=== PATIENT | female | born 1955 | race Caucasian/White ===

== ENCOUNTER → 2024-05-17 14:17 | Outpatient (REF) | payer MEDICARE, OTHER, SELFPAY | LOC: WDC 14:17 | PROVIDERS: ATTENDING PHYSICIAN Family Medicine | DX: Z12.31 Encounter for screening mammogram for malignant neoplasm of breast (principal); M81.0 Age-related osteoporosis without current pathological fracture | CPT/HCPCS: 77063; 77067; 77080 ==

== ENCOUNTER 2024-06-12 21:06 | Observation (INO) | payer MEDICARE, OTHER, SELFPAY ==
[2024-06-12 17:37] VITALS: BP 141/73
[2024-06-12 18:00] LABS: % Basophils 0.6 % (0-2); % Eosinophils 3.6 % (0-6); % Immature Granulocytes 0.2 % (0-0.5); % Monocytes 7.7 % (1.7-9.3); % Neutrophils 50.9 % (42.2-75.2); Absolute Basophils 0.1 10^3/uL (0-0.2); Absolute Eosinophils 0.3 10^3/uL (0-0.7); Absolute Lymphocytes 3.2 10^3/uL (1.2-3.4); Absolute Monocytes 0.7 10^3/uL (0.1-0.6); Absolute Neutrophils 4.4 10^3/uL (1.4-6.5); Hematocrit 39.5 % (37.0-47.0); Hemoglobin 13.4 g/dL (12.0-16.0); Mean Corp Hgb Conc. 33.9 g/dL (33.0-37.0); Mean Corpuscular Hgb 31.4 pg (27.0-31.0); Mean Corpuscular Volume 92.5 fL (81.0-99.0); Mean Platelet Volume 9.6 fL (7.4-10.4); Nucleated Red Blood Cells % 0 %; Platelet Count 325 10^3/uL (130-400); Red Blood Cell Count 4.27 10^6/uL (4.20-5.40); Red Cell Dist. Width 13.1 % (11.5-14.5); White Blood Cell Count 8.6 10^3/uL (4.8-10.8)
[2024-06-12 18:11] LABS: ALT (SGPT) 25 U/L (0-35); AST (SGOT) 31 U/L (14-36); Albumin 4.5 g/dl (3.5-5.0); Alkaline Phosphatase 106 U/L (38-126); Blood Urea Nitrogen 32 mg/dl (7-17); Calcium 10.4 mg/dl (8.4-10.2); Carbon Dioxide 32 mmol/L (22-30); Chloride 102 mmol/L (98-107); Glucose 91 mg/dl (70-99); Potassium 4.1 mmol/L (3.5-5.1); Sodium 142 mmol/L (135-145); Total Bilirubin 0.3 mg/dl (0.2-1.3); Total Protein 7.1 g/dl (6.3-8.2); eGFR > 60.00
[2024-06-12 18:45] LABS: TSH Reflex To Free T4 2.91 uIU/ml (0.47-4.68)
[2024-06-12 19:25] VITALS: BP 128/68
--- NOTE | 2024-06-12 20:00 | ED.GENMED ---
History of Present Illness
General
Chief Complaint: Visual Problem
Source: patient
Exam Limitations: none
Time Seen by Provider: 06/12/24 19:48
Nursing documentation reviewed up to this point in time: agreed with
History of Present Illness
History of Present Illness:
68-year-old female presents emergency ferment due to double vision the past 2 to 3 weeks. She was seen by Dr. 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
Past History
Past History
ED Past Medical History: None
ED Past Surgical History: Other (lasik)
Social History
Tobacco: Non-smoker
Alcohol: Occasional
Drug: None
Personal:
Living: with family
Review of Systems
Review of Systems
Allergies reviewed?: Yes
All Other Systems: Not applicable
Constitutional: Reports no symptoms
EENT: Reports no symptoms
Respiratory: Reports no symptoms
Cardiac: Reports no symptoms
ABD/GI: Reports no symptoms
: Reports no symptoms
Musculoskeletal: Reports no symptoms
Skin: Reports no symptoms
Neurological: Reports headache and other (double vision)
Endocrine: Reports no symptoms
Hematologic/Lymphatic: Reports no symptoms
Psychiatric: Reports no symptoms
Phy Exam
Physical Exam
Physical Exam:
Physical Exam
General: no apparent distress, not acutely ill
Neck: supple. no meningeal signs. normal posterior pharynx
Heart: s1/s2 regular rate and rhythm, no murmur. equal radial
pulses.
HEENT: Pupils equal round reactive to light, CN IV palsy
Lungs: no acute respiratory distress. clear bilaterally
Abdomen: normal bowel sounds. not tender. no CVAT
Neuro: alert and oriented. no focal neurological deficits cranial nerves IV palsy
Skin: no rash
Psychiatric: well kept. interactive and cooperative
Extremities: no edema. no calf tenderness. negative homans. good distal pulses
Course
Orders/Labs/Results
Orders:
Orders
06/12/24 17:52
Complete Blood Count/With Diff Urgent
Comprehensive Metabolic Panel Urgent
TSH Reflex To Free T4 Urgent
Abnormal Lab Results
06/12/24
17:52
MCH 31.4 H pg
(27.0-31.0)
Absolute Monos (auto) 0.7 H 10^3/uL
(0.1-0.6)
Carbon Dioxide 32 H mmol/L
(22-30)
BUN 32 H mg/dl
(7-17)
Calcium 10.4 H mg/dl
(8.4-10.2)
06/12/24 17:52
06/12/24 17:52
Vital Signs
Initial and Last Documented VS:
Initial Vital Signs
Temp Pulse Resp BP Pulse Ox
98.2 F 73 20 141/73 99
06/12/24 17:37 06/12/24 17:37 06/12/24 17:37 06/12/24 17:37 06/12/24 17:37
Last Documented Vital Signs
Temp Pulse Resp BP Pulse Ox
98.2 F 66 18 128/68 99
06/12/24 17:37 06/12/24 19:25 06/12/24 19:25 06/12/24 19:25 06/12/24 19:25
MDM/Problems Addressed
Differential Diagnosis Includes:
Cranial nerve IV palsy, myasthenia gravis
MDM/Problems Addressed:
68-year-old female with diplopia, suspect cranial nerve IV palsy. Admit to hospitalist. MRI of orbits and brain in a.m.
*Pulse Oximetry
Patient hypoxic: no
*EKG
Interpreted by ED Provider?: NA
*Critical Care Note
Total Time (30-74mins, 75-104mins- exclusive of procedures): Not Applicable
Data Reviewed
Further Testing Considered But Not Given:
MRI to be ordered during admission
Patient Management
Social determinants of health affecting care: Living situation
Discussion with other providers: Hospitalist, Cancer Registrar (Neurology, Dr. Leon) and Radiologist (Radiology, Dr. Valdez)
Escalation/DeEscalation of care consider admission/obs:
admit indicated
ED Attending Note
-
Portions of this chart may have been created with voice recognition software.� Occasional wrong word or��sound alike� substitutions may have occurred due to the inherent limitations of voice recognition software.
Discharge Plan
Departure
Date of Disposition: 06/12/24
Time of Disposition: 20:26
Admit to: Med/Surg
Presentation/result/management discussed w/ accepting MD/DO: Hospitalist
Patient with high blood pressure during this ER visit?: Yes
Condition: Good
Prescriptions:
No Action
hydrocodone-acetaminophen 5 MG/500 MG tablet
1 tab PO Q4HPRN PRN (Reason: pain) Qty: 40 0RF
Discharge Date and Time
Print Language: SWEDISH
[2024-06-12 20:05] VITALS: BP 149/73
--- NOTE | 2024-06-12 20:46 | HPS.HSE ---
Family Physician
-
Family Physician: Giulia Merlos
Chief Complaint
-
right eye double vision
History of Present Illness
68-year-old female without past medical history of presenting with double vision out of the right eye for the past 2 to 3 weeks. Has some headache. Denies any vision loss. Denies any facial droop, difficulty speaking, numbness or tingling, focal
weakness, dizziness or vertigo. She saw Dr. 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
No family history of cardiac problems or stroke.
Drinks wine a few times a week. Denies smoking or any drugs.
Medical History
Past Medical History
Past Medical History: Reports None
Past Surgical History: Reports None
Social History
Tobacco: Non-smoker
Alcohol: Occasional
Drug: None
Family History
Family History: Not pertinent
Allergies / Home Medications
Allergies reflects when Allergies were last updated in [facility].
Home Medications with original date entered in [facility]
Allergy/Medication List:
Allergies
Allergy/AdvReac Type Severity Reaction Status Date / Time
No Known Allergies Allergy Unverified 06/12/24 17:38
Home Medications
Caprazyme 1 cap PO DAILY 06/12/24
Nutrafol 1 cap PO DAILY 06/12/24
Oscap 1 cap PO DAILY 06/12/24
vitamin K2 90 mcg capsule 90 mcg PO DAILY 06/12/24
Review of Systems
-
History Source: Patient
A 12 point ROS was completed and negative except as noted: Yes
Constitutional: Reports No Symptoms
EENT: Reports No Symptoms
Respiratory: Reports No Symptoms
Cardiac: Reports No Symptoms
Abdomen/GI: Reports No Symptoms
: Reports No Symptoms
Musculoskeletal: Reports No Symptoms
Skin: Reports No Symptoms
Neurological: Reports See HPI and Other
Endocrine: Reports No Symptoms
Hematologic/Lymphatic: Reports No Symptoms
Psych: Reports No Symptoms
Physical Exam
Vital Signs
Vital Signs
Temp Pulse Resp BP Pulse Ox
98.2 F 69 18 149/73 99
06/12/24 17:37 06/12/24 20:11 06/12/24 20:11 06/12/24 20:05 06/12/24 20:06
Physical Exam
General: Well Developed, Well Nourished and No Apparent Distress
HEENT: NormoCephalic, Moist mucous membranes and Atraumatic
Respiratory: Clear
Cardiac: S1/S2 and Regular Rhythm; No Murmur or Rub
GI: Soft, Non Tender, Non Distended and Normal Bowel Sounds; No Organomegaly
Rectal: Deferred by Provider
Musculoskeletal: No Clubbing, No Cyanosis and No Edema
Skin: No Rash
Neuro: Other (right eye deviating upward and medially with rightward gaze )
Laboratory Results
-
06/12/24 17:52
06/12/24 17:52
Laboratory Results
Total Bilirubin 0.3 mg/dl (0.2-1.3) 06/12/24 17:52
AST 31 U/L (14-36) 06/12/24 17:52
ALT 25 U/L (0-35) 06/12/24 17:52
Alkaline Phosphatase 106 U/L (38-126) 06/12/24 17:52
Data Reviewed
-
Lab Data: Labs Reviewed by me
Old Records: Reviewed
Impression/Plan
-
IMPRESSION:
PLAN:
# Possible right cranial nerve IV palsy versus CVA
-Ophthalmologic examination in the office today was unremarkable
-Check MRI brain with and without contrast
-Eyepatch for right eye
-Neurology consulted
Full code
DVT prophylaxis�SCDs
Regular diet
--- NOTE | 2024-06-12 22:15 | PTCARENOTE ---
Patient received from the ED via stretcher. Ambulated into the room. AAOx3, VSS. No complaints of pain. Reports visual changes in the Right Eye. Patient oriented to the unit/room. Call castañeda is within reach.
[2024-06-12 22:18] VITALS: BMI 24.5
[2024-06-12 22:27] VITALS: BP 121/77
[2024-06-13 03:20] VITALS: BP 111/49
[2024-06-13 06:52] LABS: % Basophils 0.7 % (0-2); % Eosinophils 5.9 % (0-6); % Immature Granulocytes 0.1 % (0-0.5); % Lymphocytes 47.1 % (20.5-51.1); % Monocytes 11.4 % (1.7-9.3); % Neutrophils 34.8 % (42.2-75.2); Absolute Basophils 0.1 10^3/uL (0-0.2); Absolute Eosinophils 0.4 10^3/uL (0-0.7); Absolute Lymphocytes 3.5 10^3/uL (1.2-3.4); Absolute Monocytes 0.8 10^3/uL (0.1-0.6); Absolute Neutrophils 2.6 10^3/uL (1.4-6.5); Hematocrit 38.9 % (37.0-47.0); Hemoglobin 13.1 g/dL (12.0-16.0); Mean Corp Hgb Conc. 33.7 g/dL (33.0-37.0); Mean Corpuscular Volume 94.9 fL (81.0-99.0); Mean Platelet Volume 9.8 fL (7.4-10.4); Nucleated Red Blood Cells % 0 %; Platelet Count 290 10^3/uL (130-400); White Blood Cell Count 7.3 10^3/uL (4.8-10.8)
[2024-06-13 07:14] LABS: ALT (SGPT) 22 U/L (0-35); AST (SGOT) 29 U/L (14-36); Albumin 3.9 g/dl (3.5-5.0); Alkaline Phosphatase 84 U/L (38-126); Blood Urea Nitrogen 26 mg/dl (7-17); Calcium 9.8 mg/dl (8.4-10.2); Carbon Dioxide 31 mmol/L (22-30); Chloride 104 mmol/L (98-107); Estimated Creatinine Clearance 56 ml/min; Glucose 94 mg/dl (70-99); Potassium 4.5 mmol/L (3.5-5.1); Sodium 142 mmol/L (135-145); Total Bilirubin 0.5 mg/dl (0.2-1.3); Total Protein 6.4 g/dl (6.3-8.2); eGFR > 60.00
[2024-06-13 08:04] VITALS: BP 114/69
--- NOTE | 2024-06-13 11:30 | CON.NEURO4 ---
Consultation - Neurology 4
-
CONSULTING PHYSICIAN: Rogerio Leon MD(neurology)
REFERRING PHYSICIAN: Hospitalist
DICTATED BY: Rogerio Leon MD
DATE/TIME OF REQUEST: June 12, 2024
DATE/TIME OF CONSULTATION: June 13, 2024 1030
Reason for Consultation: Double vision
History of Present Illness:
This is a 68year old right handed female) who has presented to the hospital with (chief complaint) of double vision. She has no previous medical history on no prescription medications other than supplements. She had been in usual state of health
till May 23 week. At that time while doing her routine activities she noted double vision looking straight ahead and to the right. The object appear [id number] and tilted. NO Double vision on looking to the left. She did not seek any medical
attention. After she returned to [place] last week she saw her motorboat mechanic helper earlier this week, who referred her to the emergency room for further evaluation of double vision
She does get cosmetic Botox to face on periodic basis
Past Medical History: Sarcoma
Surgical History: Sarcoma
Family History: Noncontributory
Social History: Lives at home with her significant other
Allergies: Gluten
Home Medications: Supplements. Cosmetic Botox..
Review of Symptoms:
Patient denies any fever, headache, chest pain, shortness of breath, GI or symptoms.
�Per the HPI.�All systems are reviewed negative except above.
Vital Signs:
The patient has a Temp 98.2 F Pulse 69 Resp18 BP149/73 Pulse Ox 99
Physical Exam:
The patient is afebrile, heart sounds S1 and S2 are regular , and chest is clear to auscultation bilaterally.
- If not clear, describe.
Neurologic Examination:
The patient is awake, alert and oriented x 3. She) is able to follow commands and answer questions appropriately. There is no aphasia or dysarthria. On cranial nerve assessment, pupils are 3 mm bilateral, round and reactive to light and
accommodation. Visual payne are full. Extraocular movements are impaired to the RIGHT with skew deviation looking up/down vertical gaze.. Facial sensations are intact and bilaterally symmetrical, there is no facial asymmetry. Hearing is intact
bilaterally to normal conversation volume. Tongue palate and uvula are midline. Sternocleidomastoid strengths are full bilaterally. Motor strengths are 5/5 bilateral upper and lower extremities on medical research [place] scale. There is no drift
or involuntary movement noted. Deep tendon reflexes are 2+ bilateral upper and lower extremities and Babinski is absent bilaterally. Sensations of pain, touch, temperature and vibration are intact and bilaterally symmetrical. There was no extinction
noted on double simultaneous stimulation. Coordination is intact by finger to nose bilaterally.
Lab Results: Addendum
Neuro Imaging: MRI brain Atrophy. Small vessel disease. normal asymmetrical ventricles
Impression:
Ms. BASSEM DENISE is a 68 year old F who has presented to the hospital with (symptoms/chief complaint) of double vision secondary extraocular muscle weakness to Botox injection.
Recommendations:
1. Avoid Botox injections in the future
2. Eye patch
Discussed patient care with: Hospitalist and patient
Allergies
-
Allergies
Allergy/AdvReac Type Severity Reaction Status Date / Time
gluten Allergy Mild diarrhea Verified 06/12/24 22:33
and hives
Vital Signs and Labs
-
Vital Signs and Labs:
Vital Signs
Temp Pulse Resp BP Pulse Ox
36.6 C 73 18 133/79 98
06/13/24 13:03 06/13/24 13:03 06/13/24 13:03 06/13/24 13:03 06/13/24 13:03
Lab Results
06/13/24 04:38
06/13/24 04:38
Sodium 142 mmol/L (135-145) 06/13/24 04:38
Potassium 4.5 mmol/L (3.5-5.1) 06/13/24 04:38
BUN 26 mg/dl (7-17) H 06/13/24 04:38
Glucose 94 mg/dl (70-99) 06/13/24 04:38
Calcium 9.8 mg/dl (8.4-10.2) 06/13/24 04:38
Medications
-
Home Medications
�Medication �Instructions �Recorded
Caprazyme 1 cap PO DAILY Supplement 06/12/24
Nutrafol 1 cap PO DAILY Supplement 06/12/24
Oscap 1 cap PO DAILY Supplement 06/12/24
vitamin K2 90 mcg capsule 90 mcg PO DAILY Supplement 06/12/24
[2024-06-13 13:03] VITALS: BP 133/79
--- NOTE | 2024-06-13 13:34 | W.DCSUMMARY ---
Discharge Summary
Discharge Data
Date of Admission: 06/12/24
Date of Discharge: 06/13/24
-
Pending Results: No
Hospital Course
Discharging Physician : Dr. William Teran
Disposition :
Primary care physician :
Principal Discharge diagnosis :
1. 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
History of present illness:
68-year-old female without past medical history of presenting with double vision out of the right eye for the past 2 to 3 weeks. Has some headache. Denies any vision loss. Denies any facial droop, difficulty speaking, numbness or tingling, focal
weakness, dizziness or vertigo. She saw Dr. 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
No family history of cardiac problems or stroke.
Drinks wine a few times a week. Denies smoking or any drugs.
Hospital Course :
So patient has been having the symptoms for the last few weeks mostly in the right eye diplopia, seen by her paper roller as mentioned above further workup showed no local eye abnormality explaining her diplopia, admitted in the ER for MRI
eventually MRI of brain done showed no acute abnormality like stroke or mass lesion, per further evaluation patient look like been getting the Botox to her face and likely that is causing her symptoms as discussed with neurology they think this is
causing his diplopia and had no any other symptom or complaint like weakness or numbness or any speech disturbance no facial droop,
Her condition discussed with her and her significant other in detail after permission and expressed understanding and was clear by neurology for discharge.
Changes to Home Medications: No
Discharge Medications:
DC Medications w/original date entered in [facility]
Caprazyme 1 cap PO DAILY Supplement 06/12/24
Nutrafol 1 cap PO DAILY Supplement 06/12/24
Oscap 1 cap PO DAILY Supplement 06/12/24
vitamin K2 90 mcg capsule 90 mcg PO DAILY Supplement 08/21/24
Home Medication Changes
Pending Results: No
Additional Pending Results:
Physical exam:
General: Awake, alert and oriented x3, not in distress and holds appropriate conversation.
HEENT: Double vision on the right eye exam only no active discharge, ecchymosis or bruising, moist lips, tongue and mucous membrane.
Eyes: No discharge or red conjunctiva, no nystagmus, pupils are reactive and equal
Neck:Supple, no JVD no bruit no goiter.
Respiratory: Normal AP contour and diameter, normal chest wall movement, normal respiratory effort, no respiratory distress,
Lungs: Good air entry bilaterally, no wheezing or rhonchi, no rales or crackles
Heart: S1, S2 regular, normal rate, no added sound.
Gastrointestinal: Positive bowel sounds, soft, nontender, no guarding or rigidity or organomegaly
Musculoskeletal: , no chest wall abnormality or tenderness. All joints and extremities have good range of motion, no muscle tenderness or any joint swelling or tenderness.
Extremities: No pitting edema, good peripheral pulses, good range of motion
Skin: Warm and dry, no ulceration, normal color.
Neurological: Awake, alert and oriented x3,No facial droop, smile with double vision of the right eye,speech clear and comprehensive, good muscle tone, normal sensory and motor function
Psychiatric: Normal mood, normal thought and judgment, normal affect,
Condition on discharge: Awake, alert and oriented x3, answer question properly, able to make own decision and take care of activities of daily living, speech clear and comprehensive, continent of the bowel and bladder, ambulate without rehab care assistant,
goes home where lives with the family independently.
Discharge Plan
-
Patient Disposition: Home (Routine Discharge)
Discharge Diagnosis/Procedures: Right eye diplopia
Condition: Good
Diet: No restrictions
Referrals:
Giulia Merlos MD [Family Provider] -
Prescriptions:
Continued
vitamin K2 90 mcg Capsule
90 mcg PO DAILY
Caprazyme capsule
1 cap PO DAILY
Nutrafol capsule
1 cap PO DAILY
Oscap capsule
1 cap PO DAILY
Discharge Orders:
Discharge Patient (As Directed); Ordered 06/13/24
Ordered By: William Teran
Discharge Date and Time
Discharge Date/Time: 06/13/24 14:22
Print Language: BURUNDIAN
--- NOTE | 2024-06-13 15:48 | CM ---
Alert awake oriented patient who lives with her SO Zaheer in a 2 story home with 3 steps to enter and 14 steps to bed/bathroom. She is independent in driving and all activates of daily living.ARANDA letter explained signed on chart.
Had VN in past . No SNF hx
Ph[facility]
PCP Dr Merlos
PLAN Home with no anticipated needs
--- NOTE | 2024-06-16 16:03 | W.DS.TRANS ---
DC Summary - Medical Equipment Sales
-
Discharge Instructions:
Discharge Diagnosis/Procedures Right eye diplopia
Diet No restrictions
Instructions:
Stand-Alone Forms:
Changes to Home Medications: No
Discharge Medications:
DC Medications w/original date entered in [facility]
Caprazyme 1 cap PO DAILY Supplement 06/12/24
Nutrafol 1 cap PO DAILY Supplement 06/12/24
Oscap 1 cap PO DAILY Supplement 06/12/24
vitamin K2 90 mcg capsule 90 mcg PO DAILY Supplement 06/12/24
Home Medication Changes
Pending Results: No
Additional Pending Results:
Physical exam:
General: Awake, alert and oriented x3, not in distress and holds appropriate conversation.
HEENT: Double vision on the right eye exam only no active discharge, ecchymosis or bruising, moist lips, tongue and mucous membrane.
Eyes: No discharge or red conjunctiva, no nystagmus, pupils are reactive and equal
Neck:Supple, no JVD no bruit no goiter.
Respiratory: Normal AP contour and diameter, normal chest wall movement, normal respiratory effort, no respiratory distress,
Lungs: Good air entry bilaterally, no wheezing or rhonchi, no rales or crackles
Heart: S1, S2 regular, normal rate, no added sound.
Gastrointestinal: Positive bowel sounds, soft, nontender, no guarding or rigidity or organomegaly
Musculoskeletal: , no chest wall abnormality or tenderness. All joints and extremities have good range of motion, no muscle tenderness or any joint swelling or tenderness.
Extremities: No pitting edema, good peripheral pulses, good range of motion
Skin: Warm and dry, no ulceration, normal color.
Neurological: Awake, alert and oriented x3,No facial droop, smile with double vision of the right eye,speech clear and comprehensive, good muscle tone, normal sensory and motor function
Psychiatric: Normal mood, normal thought and judgment, normal affect,
Condition on discharge: Awake, alert and oriented x3, answer question properly, able to make own decision and take care of activities of daily living, speech clear and comprehensive, continent of the bowel and bladder, ambulate without assistant professor of forestry,
goes home where lives with the family independently.
== END 2024-06-13 14:22 | disposition home or self-care (01) ==
LOC: 4 EAST ACU 21:06
PROVIDERS: Student in an Organized Health Care Education/Training Program; ADMITTING PHYSICIAN Hospitalist; ATTENDING PHYSICIAN Internal Medicine; CONSULT PHYSICIAN Psychiatry & Neurology Neurology; EMERGENCY PHYSICIAN Emergency Medicine; FAMILY PHYSICIAN Family Medicine
DX: H49.11 Fourth [trochlear] nerve palsy, right eye (principal); H53.2 Diplopia; R51.9 Headache, unspecified; M62.81 Muscle weakness (generalized); I67.82 Cerebral ischemia
CPT/HCPCS: 70553; 80053; 84443; 85025; 99285; A9575; G0378

== ENCOUNTER → 2025-05-20 14:49 | Outpatient (REF) | payer MEDICARE, OTHER, SELFPAY | LOC: WDC 14:49 | PROVIDERS: ATTENDING PHYSICIAN Family Medicine | DX: Z12.31 Encounter for screening mammogram for malignant neoplasm of breast (principal) | CPT/HCPCS: 77063; 77067 ==